=== PATIENT | male | born 1970 | race Caucasian/White ===

== ENCOUNTER 2021-02-04 06:32 | Emergency (ER) | payer BC ==
[2021-02-04] MEDS ORDERED: Aspirin 81 MG Tab.Chew PO ONE (06:52)
[2021-02-04] MEDS ORDERED: Sodium Chloride 0.9% 1,000 ML IV SCH (07:00)
--- NOTE | 2021-02-04 07:04 | EDM.PDOC ---
<Richard Chambers - Last Filed: 02/04/21 07:19> ED HPI GENERAL MEDICAL PROBLEM - General Chief Complaint: Chest Pain Stated Complaint: CHEST PAIN Time Seen by Provider: 02/04/21 06:32 - History of Present Illness INITIAL COMMENTS - FREE TEXT/NARRATIVE: 50-year-old male presents the emergency room with chest pain. This pain started around 10:00 last night was fairly sudden onset. Pain is now associated with a cough. Patient does not have any calf tenderness. He has not had any nausea vomiting no fevers chills or diaphoresis. Prior to 10:00 last night patient felt just fine. Patient has no history of chest pain or problems like this in the past. No history of coronary artery disease or other significant medical problems. Patient is not a smoker and has no smoking history. Family history is negative for coronary artery disease or problems such as this. The patient is a [id number] dad and cannot think of any triggers that would have brought this on. Chest Pain Score (Numeric/FACES): 10 - Related Data Allergies Allergy/AdvReac Type Severity Reaction Status Date / Time No Known Allergies Allergy Verified 02/04/21 06:41 Home Meds: Home Meds . [No Known Home Meds] 02/04/21 [History] Social & Family History - Tobacco Use Tobacco Use Status *Q: Former Tobacco User Used Tobacco, but Quit: Yes Month/Year Tobacco Last Used: 0 ED ROS GENERAL - Review of Systems Review Of Systems: See Below Constitutional: Reports: No Symptoms HEENT: Reports: No Symptoms Respiratory: Reports: Shortness of Breath, Pleuritic Chest Pain, Cough (This cough started with chest pain). Denies: Sputum, Hemoptysis Cardiovascular: Reports: Chest Pain. Denies: Dyspnea on Exertion, Edema, Palpitations, PND, Syncope GI/Abdominal: Reports: No Symptoms : Reports: No Symptoms Musculoskeletal: Reports: No Symptoms Skin: Reports: No Symptoms Neurological: Reports: No Symptoms ED EXAM, GENERAL - Physical Exam Exam: See Below Exam Limited By: No Limitations General Appearance: Alert, Anxious Eye Exam: Bilateral Eye: Normal Inspection, PERRL Ears: Normal External Exam, Normal Canal, Hearing Grossly Normal, Normal TMs Nose: Normal Inspection, Normal Mucosa, No Blood Throat/Mouth: Normal Inspection, Normal Lips, Normal Teeth, Normal Gums, Normal Oropharynx, Normal Voice, No Airway Compromise Head: Atraumatic, Normocephalic Neck: Normal Inspection, Supple, Non-Tender, Full Range of Motion. No: Lymphadenopathy (L), Lymphadenopathy (R), Thyromegaly Respiratory/Chest: No Respiratory Distress, Rhonchi (Few coarse breath sounds noted right base more posterior). No: Lungs Clear (Mostly clear breath sounds) Cardiovascular: Regular Rate, Rhythm, No Edema, No Murmur GI/Abdominal: Normal Bowel Sounds, Soft, Non-Tender Back Exam: Normal Inspection. No: CVA Tenderness (L), CVA Tenderness (R) Neurological: Alert, Oriented Psychiatric: Normal Affect Skin Exam: Warm, Dry, Intact, Normal Color, No Rash #1 Interpretation EKG Date: 02/04/21 Rhythm: Other (Mild sinus irregularity) [place]: Normal P-Wave: Present QRS: Normal ST-T: Other (Nonspecific nondiagnostic changes most likely due to baseline wander) QT: Normal Comparison: NA - No Prior EKG Course - Re-Assessments/Exams Free Text/Narrative Re-Assessment/Exam: 02/04/21 07:19 Change of shift further care and disposition per Dr. Ferrer. Departure - Departure Disposition: DC/Tfer to Acute Hospital 02 Clinical Impression: Elevated troponin I level, Acute coronary syndrome Chest pain Qualifiers: Chest pain type: chest pain due to myocardial ischemia Referrals: Rinku Floyd Jr, MD [Primary Care Provider] - Forms: ED Department Discharge Additional Instructions: Patient will be transferred to [facility] in [facility]. He will travel to the emergency department where Dr. Andrew Buchanan has accepted care. Sepsis Event Note (ED) - Evaluation Sepsis Screening Result: No Definite Risk <Tim Ferrer - Last Filed: 02/04/21 09:51> Social & Family History - Living Situation & Occupation Living situation: Reports: Occupation: Unemployed (Stays home with the children.) #2 Interpretation EKG Date: 02/04/21 Time: 08:13 Rhythm: NSR Rate (Beats/Min): 73 [place]: Normal P-Wave: Present (Mildly short VA interval) QRS: Other (Early R wave transition consider right ventricular hypertrophy versus septal hypertrophy pattern) ST-T: Normal QT: Prolonged (Mildly prolonged) EKG Interpretation Comments: Borderline ECG #3 Interpretation EKG Date: 02/04/21 Time: 08:43 Rhythm: NSR Rate (Beats/Min): 85 [place]: Normal P-Wave: Present (T wave is inverted in lead V1 nonspecific finding) QRS: Other (Early R wave transition consider right ventricular perjury versus septal hypertrophy pattern minimal Q waves appreciated leads III and aVF less than 25% of the QRS complex and considered insignificant) ST-T: Normal QT: Prolonged (Mildly prolonged) EKG Interpretation Comments: Borderline ECG without definitive evidence of ischemia Course - Vital Signs Last Recorded V/S: Last Vital Signs Temp 36.8 C 02/04/21 06:38 Pulse 99 02/04/21 06:38 Resp 22 H 02/04/21 06:38 BP 149/51 H 02/04/21 07:32 Pulse Ox 100 02/04/21 06:38 - Orders/Labs/Meds Orders: Active Orders 24 hr Category Date Time Status Heparin Sodium/D5W [Heparin 25,000 Units in D5W 500 ML] Med 02/04/21 08:00 Active 25,000 units in 500 ml IV ASDIRECTED Nitroglycerin/D5W [Nitroglycerin 25 MG/D5W 250 ML] Med 02/04/21 08:00 Active 25 mg in 250 ml IV TITRATE Sodium Chloride 0.9% [Normal Saline] 1,000 ml Med 02/04/21 07:00 Active IV ASDIRECTED Medication Orders Sodium Chloride (Normal Saline) 1,000 mls @ 50 mls/hr IV ASDIRECTED LUCRECIA Stop: 02/08/21 06:53 Last Admin: 02/04/21 07:14 Dose: 50 mls/hr Documented by: SHELLY Nitroglycerin/Dextrose (Nitroglycerin 25 Mg/D5w 250 Ml) 25 mg in 250 mls @ 6 mls/hr IV TITRATE LUCRECIA Last Admin: 02/04/21 08:14 Dose: 10 mcg/min, 6 mls/hr Documented by: SHELLY Heparin Sodium/Dextrose (Heparin 25,000 Units In D5w 500 Ml) 25,000 units in 500 mls @ 20 mls/hr IV ASDIRECTED LUCRECIA Last Admin: 02/04/21 08:13 Dose: 1,000 units/hr, 20 mls/hr Documented by: SHELLY Cosigned by: CHRISTIAN Labs: Laboratory Tests 02/04/21 02/04/21 02/04/21 Range/Units 06:40 06:40 06:40 WBC 8.95 (4.23-9.07) K/mm3 RBC 5.64 (4.63-6.08) M/mm3 Hgb 15.7 (13.7-17.5) gm/dl Hct 46.3 (40.1-51.0) % MCV 82.1 (79.0-92.2) fl MCH 27.8 (25.7-32.2) pg MCHC 33.9 (32.2-35.5) g/dl RDW Std Deviation 39.1 (35.1-43.9) fL Plt Count 301 (163-337) K/mm3 MPV 10.6 (9.4-12.3) fl Neut % (Auto) 50.4 (34.0-67.9) % Lymph % (Auto) 39.6 (21.8-53.1) % [place] % (Auto) 8.4 (5.3-12.2) % Eos % (Auto) 1.2 (0.8-7.0) Baso % (Auto) 0.2 (0.1-1.2) % Neut # (Auto) 4.51 (1.78-5.38) K/mm3 Lymph # (Auto) 3.54 (1.32-3.57) K/mm3 [place] # (Auto) 0.75 (0.30-0.82) K/mm3 Eos # (Auto) 0.11 (0.04-0.54) K/mm3 Baso # (Auto) 0.02 (0.01-0.08) K/mm3 PT 10.4 (9.7-12.0) SECONDS INR 0.97 APTT 33.9 H (21.7-31.4) SECONDS D-Dimer, Quantitative 0.48 (0.19-0.50) mg/L Sodium 139 (136-145) mEq/L Potassium 3.5 (3.5-5.1) mEq/L Chloride 108 H (98-107) mEq/L Carbon Dioxide 21 (21-32) mEq/L Anion Gap 13.5 (5-15) BUN 18 (7-18) mg/dL Creatinine 1.2 (0.7-1.3) mg/dL Est Cr Clr Drug Dosing 80.83 mL/min Estimated GFR (MDRD) > 60 (>60) mL/min BUN/Creatinine Ratio 15.0 (14-18) Glucose 126 H (74-106) mg/dL Calcium 9.3 (8.5-10.1) mg/dL Magnesium (1.8-2.4) mg/dl Total Bilirubin 0.4 (0.2-1.0) mg/dL AST 28 (15-37) U/L ALT 43 (16-63) U/L Alkaline Phosphatase 73 (46-116) U/L CK-MB (CK-2) (0-3.6) ng/ml Troponin I 0.090 H* (0.00-0.056) ng/mL NT-Pro-B Natriuret Pep (0-125) pg/mL Total Protein 7.8 (6.4-8.2) g/dl Albumin 4.0 (3.4-5.0) g/dl Globulin 3.8 gm/dL Albumin/Globulin Ratio 1.1 (1-2) 02/04/21 02/04/21 02/04/21 Range/Units 06:40 06:41 06:41 WBC (4.23-9.07) K/mm3 RBC (4.63-6.08) M/mm3 Hgb (13.7-17.5) gm/dl Hct (40.1-51.0) % MCV (79.0-92.2) fl MCH (25.7-32.2) pg MCHC (32.2-35.5) g/dl RDW Std Deviation (35.1-43.9) fL Plt Count (163-337) K/mm3 MPV (9.4-12.3) fl Neut % (Auto) (34.0-67.9) % Lymph % (Auto) (21.8-53.1) % [place] % (Auto) (5.3-12.2) % Eos % (Auto) (0.8-7.0) Baso % (Auto) (0.1-1.2) % Neut # (Auto) (1.78-5.38) K/mm3 Lymph # (Auto) (1.32-3.57) K/mm3 [place] # (Auto) (0.30-0.82) K/mm3 Eos # (Auto) (0.04-0.54) K/mm3 Baso # (Auto) (0.01-0.08) K/mm3 PT (9.7-12.0) SECONDS INR APTT (21.7-31.4) SECONDS D-Dimer, Quantitative (0.19-0.50) mg/L Sodium (136-145) mEq/L Potassium (3.5-5.1) mEq/L Chloride (98-107) mEq/L Carbon Dioxide (21-32) mEq/L Anion Gap (5-15) BUN (7-18) mg/dL Creatinine (0.7-1.3) mg/dL Est Cr Clr Drug Dosing mL/min Estimated GFR (MDRD) (>60) mL/min BUN/Creatinine Ratio (14-18) Glucose (74-106) mg/dL Calcium (8.5-10.1) mg/dL Magnesium 2.1 (1.8-2.4) mg/dl Total Bilirubin (0.2-1.0) mg/dL AST (15-37) U/L ALT (16-63) U/L Alkaline Phosphatase (46-116) U/L CK-MB (CK-2) 2.9 (0-3.6) ng/ml Troponin I (0.00-0.056) ng/mL NT-Pro-B Natriuret Pep 81 (0-125) pg/mL Total Protein (6.4-8.2) g/dl Albumin (3.4-5.0) g/dl Globulin gm/dL Albumin/Globulin Ratio (1-2) Meds: Medications Generic Name Dose Route Start Last Admin Trade Name Freq PRN Reason Stop Dose Admin Sodium Chloride 1,000 mls @ 50 mls/hr 02/04/21 07:00 02/04/21 07:14 Normal Saline IV 02/08/21 06:53 50 mls/hr ASDIRECTED LUCRECIA Administration Nitroglycerin/Dextrose 25 mg in 250 mls @ 6 mls/hr 02/04/21 08:00 02/04/21 08:14 Nitroglycerin 25 Mg/D5w 250 Ml IV 10 mcg/min TITRATE LUCRECIA 6 mls/hr Administration 10 MCG/MIN Heparin Sodium/Dextrose 25,000 units in 500 mls @ 20 mls/hr 02/04/21 08:00 02/04/21 08:13 Heparin 25,000 Units In D5w 500 Ml IV 1,000 units/hr ASDIRECTED LUCRECIA 20 mls/hr Administration 1,000 UNITS/HR Discontinued Medications Generic Name Dose Route Start Last Admin Trade Name Freq PRN Reason Stop Dose Admin Aspirin 324 mg 02/04/21 06:52 02/04/21 07:13 Aspirin 81 Mg Tab.Chew PO 02/04/21 06:53 324 mg ONETIME ONE Administration Heparin Sodium (Porcine) 4,000 units 02/04/21 07:57 02/04/21 08:05 Heparin Sodium 5,000 Units/Ml Vial IVPUSH 02/04/21 07:58 4,000 units .BOLUS ONE Administration Hydromorphone HCl 1 mg 02/04/21 07:33 02/04/21 07:44 Hydromorphone 1 Mg/Ml Syringe IVPUSH 02/04/21 07:34 1 mg ONETIME ONE Administration Metoclopramide HCl 10 mg 02/04/21 07:33 02/04/21 07:45 Metoclopramide 10 Mg/2 Ml Sdv IVPUSH 02/04/21 07:34 10 mg ONETIME ONE Administration Nitroglycerin 0.4 mg 02/04/21 06:52 02/04/21 07:32 Nitroglycerin 0.4 Mg Tab.Sl SL 0.4 mg Q5M PRN Administration Chest Pain - Re-Assessments/Exams Free Text/Narrative Re-Assessment/Exam: 02/04/21 07:27 Care has been assumed from Dr. Chambers as it is change of shift. 50-year-old male attends the ED with acute onset of mid to right anterior chest pain starting about 2200 hrs. last evening. Upon review of the patient he is just getting his last nitroglycerin tablet out of 3 doses. So far no headache. Still rates his right precordial chest pain as a 5 out of 10. No associated nausea or vomiting. Denies cough or sputum production. Portable chest x-ray reveals mild cardiomegaly with tortuous thoracic aorta. Prominence of the right perihilar area which appears to be vascular. No pleural effusions no pneumothorax. 5/min. Mild early R wave transition suggesting possible septal hypertrophy pattern. P waves present and has a short VA interval. No delta waves appreciated. Diffuse early repolarization pattern throughout the precordial leads. Diffuse peaked T waves throughout mid precordial leads V3, V4 and V5. No baseline changes to suggest ischemia.Patient will be given Reglan 10mg IV with Dilaudid 1 mg IV to relieve pain. Blood pressure is improved to 149/81 at present.Only labs back at this time are PT of 10.4 with an INR of 0.97 PTT mildly elevated at 33.9. 02/04/21 07:55 White count is 8.95 with a differential of 50% neutrophils. Hemoglobin 15.7 with hematocrit of 46.3 platelet count 301,000. D-dimer is normal at 0.48. Sodium 139 with a potassium of 3.5. Chloride slightly elevated 108. Carbon dioxide is 21. Anion gap is 13.5 with a BUN of 18 and a creatinine of 1.2. Estimated GFR is greater than 60. Glucose slightly elevated 126. Calcium is 9.3 total bilirubin 0.4 AST and ALT are normal. Alk phosphatase is normal as well at 73. Initial troponin I is mildly elevated at 0.090 total protein 7.8 with an albumin fraction of 4.0. No evidence of pulmonary embolism with a normal D-dimer. Mildly elevated serum troponin I is suggestive of myocardial injury -- NSTEMI. Plan: the patient will be started on nitroglycerin drip at 10 mcg/min. He will be started on heparin 4000 unit bolus followed by 1000 unit/hr infusion. 02/04/21 08:07 I did speak with the patient and his and appraise them of the above findings suggesting myocardial infarction or non-STEMI. ECG will be repeated at this time blood pressure is currently 140/81 with O2 sats of 97% on 2 L/min by nasal cannula. O2 sats dropped to 91 to 92% after receiving Dilaudid 1 mg IV. Currently he rates his pain as 2-3 out of 10. All of his records are at the [facility]. I will therefore speak to the commodities trader at [facility] in [place]. 02/04/21 08:34 CK-MB fraction is 2.9 in the normal range. BNP is 81. Serum magnesium is 2.1. I have sent the ECGs for over read by commodities trader at [facility] in [place]. I have also spoken with Dr.Bandari--on-call hospitalist at that facility and he has accepted care of this patient. Transfer will be delayed as there is not yet a bed available at [place]. They will call as soon as a bed becomes available 02/04/21 08:52 second and third ECGs have been completed and do not reveal any signs of ischemia. Care has been accepted at the emergency department in [facility] in [place] by Dr. Trammell. The ambulance will therefore be summoned to provide transport for this patient to [place]. Current vital signs are BP 125/81 with a heart rate of 89 and sinus. O2 sats 96% on 2 L/min. Respiratory rate is 16. Departure - Departure Time of Disposition: 09:25 Reason for Transfer *Q: Other Condition: Fair Sepsis Event Note (ED) - Focused Exam Vital Signs: Vital Signs Temp Pulse Resp BP BP Pulse Ox 02/04/21 07:32 149/51 H 02/04/21 07:22 152/92 H 02/04/21 07:14 160/100 H 02/04/21 06:38 36.8 C 99 22 H 182/104 H 100 - My Orders Last 24 Hours: My Active Orders 02/04/21 08:00 Heparin Sodium/D5W [Heparin 25,000 Units in D5W 500 ML] 25,000 units in 500 ml IV ASDIRECTED Nitroglycerin/D5W [Nitroglycerin 25 MG/D5W 250 ML] 25 mg in 250 ml IV TITRATE - Assessment/Plan Last 24 Hours: My Active Orders 02/04/21 08:00 Heparin Sodium/D5W [Heparin 25,000 Units in D5W 500 ML] 25,000 units in 500 ml IV ASDIRECTED Nitroglycerin/D5W [Nitroglycerin 25 MG/D5W 250 ML] 25 mg in 250 ml IV TITRATE
[2021-02-04] MEDS: Nitroglycerin 0.4 MG Tab.SL SL PRN ×3 (07:14→07:32)
[2021-02-04] MEDS ORDERED: Metoclopramide 10 MG/2 ML SDV IVPUSH ONE (07:33)
[2021-02-04] MEDS ORDERED: HYDROmorphone 1 MG/ML Syringe IVPUSH ONE (07:33)
[2021-02-04] MEDS ORDERED: Heparin Sodium 5,000 Units/ML Vial IVPUSH ONE (07:57)
[2021-02-04] MEDS ORDERED: Nitroglycerin/D5W 25 MG/250 ML BOTTLE IV SCH (08:00)
[2021-02-04] MEDS ORDERED: Heparin Sodium/D5W 25,000 UNITS/500 ML BAG IV SCH (08:00)
--- NOTE | 2021-02-04 08:37 | CR ---
Chest: Portable supine view of the chest was obtained. Comparison: No prior chest x-rays available. Heart size and mediastinum are normal. Lungs are clear with no acute parenchymal change. No acute osseous finding is appreciated. Impression: 1. Nothing acute is appreciated on portable supine chest x-ray. Diagnostic code #1
== END 2021-02-04 09:25 ==
LOC: JD.ED 06:32
DX: I24.9 Acute ischemic heart disease, unspecified (principal); R79.89 Other specified abnormal findings of blood chemistry; Z87.891 Personal history of nicotine dependence
CPT/HCPCS: 36415; 71045; 80053; 82553; 83735; 83880; 84484; 85025; 85379; 85610; 85730; 93005; 96365; 96368; 96375; 99285; A9270; J1170; J1644; J2765; J3490; J7030; 93010

== ENCOUNTER 2023-11-10 12:30 | Emergency (ER) | payer BC ==
[2023-11-10] MEDS ORDERED: Sodium Chloride 0.9% 10 ML Syringe FLUSH PRN (13:04)
[2023-11-10 13:29] LABS: BASOPHILS PERCENT AUTO 0.4 % (0.0-1.0); EOSINOPHILS ABSOLUTE AUTO 0.2 K/mm3 (0.0-0.4); EOSINOPHILS PERCENT AUTO 2.4 % (0.0-6.0); HEMATOCRIT 44.6 % (42.0-52.0); HEMOGLOBIN 15.3 gm/dl (14.0-18.0); IMMATURE GRAN ABSOLUTE AUTO 0.02 K/mm3 (0.00-0.05); IMMATURE GRAN PERCENT AUTO 0.3 % (0.0-0.4); LYMPHOCYTES ABSOLUTE AUTO 2.1 K/mm3 (1.0-4.8); LYMPHOCYTES PERCENT AUTO 28.5 % (24.0-44.0); MEAN CORPUSCULAR HEMOGLOBIN 28.7 pg (28.0-32.0); MEAN CORPUSCULAR HGB CONC 34.3 g/dl (32.0-36.0); MEAN CORPUSCULAR VOLUME 83.5 fl (83.0-99.0); MEAN PLATELET VOLUME 9.9 fl (9.4-12.4); MONOCYTES ABSOLUTE AUTO 0.6 K/mm3 (0.0-0.8); MONOCYTES PERCENT AUTO 7.6 % (0.0-8.0); NEUTROPHILS ABSOLUTE AUTO 4.4 K/mm3 (1.8-7.7); NEUTROPHILS PERCENT AUTO 60.8 % (41.0-71.0); PLATELET COUNT,PLT 262 K/mm3 (150-400); RED BLOOD CELL COUNT 5.34 M/mm3 (4.52-5.90); WHITE BLOOD CELL COUNT,WBC 7.23 K/mm3 (3.9-11.3)
[2023-11-10 13:52] LABS: A/G RATIO 0.8 (1-2); ANION GAP 12.8 (5-15); BILIRUBIN TOTAL 0.3 mg/dL (0.2-1.0); BUN/CREATININE RATIO 12.7 (14-18); CALCIUM 8.3 mg/dL (8.5-10.1); CREATININE 1.1 mg/dL (0.7-1.3); EST CRCL DRUG DOSING (CG) 85.24 mL/min; MAGNESIUM 1.9 mg/dL (1.8-2.4); PROTEIN TOTAL,TP 6.7 g/dl (6.4-8.2)
[2023-11-10 13:54] LABS: POTASSIUM,K 3.8 mEq/L (3.5-5.1)
[2023-11-10 14:06] LABS: APPEARANCE,URINE CLEAR (Clear); BILIRUBIN,URINE NEGATIVE (Negative); COLOR,URINE YELLOW (Yellow); GLUCOSE,URINE NEGATIVE (Negative); KETONES,URINE NEGATIVE (Negative); LEUKOCYTE ESTERASE,URINE NEGATIVE (Negative); NITRITE,URINE NEGATIVE (Negative); OCCULT BLOOD,URINE NEGATIVE (Negative); PROTEIN,URINE NEGATIVE (Negative); UROBILINOGEN,URINE 0.2 (0.2-1.0)
[2023-11-10] MEDS ORDERED: Promethazine 25 MG/ML SDV IM ONE (14:20)
[2023-11-10 14:21] LABS: BACTERIA,URINE FEW /hpf (FEW); EPITHELIAL CELLS,URINE 0-5 /hpf (0-5); MUCUS,URINE FEW /hpf (FEW); RBC,URINE 0-5 /hpf (0-5); WBC,URINE 0-5 /hpf (0-5)
[2023-11-10 14:42] LABS: CORONAVIRUS COVID-19 NAA NEGATIVE (NEGATIVE); INFLUENZA A NAA NEGATIVE (NEGATIVE); RESPIRATORY SYNCYTIAL VIR NAA NEGATIVE (NEGATIVE)
== END 2023-11-10 15:42 | disposition home or self-care (01) ==
LOC: JD.ED 12:30
DX: R42 Dizziness and giddiness (principal); Z20.822 Contact with and (suspected) exposure to COVID-19
CPT/HCPCS: 0241U; 36415; 71046; 74018; 80053; 81001; 83735; 85025; 96372; 99284; J2550